=== PATIENT | male | born 1975 | race Caucasian/White ===

== ENCOUNTER 2016-04-13 08:50 | Emergency (ER) | payer BC ==
[2016-04-13 08:59] VITALS: BP 117/79
--- NOTE | 2016-04-13 09:07 | UC ---
Hip/Pelvis Pain - HPI Summary HPI Summary: complaint of right hip pain that started 3 months ago popped his hip 3 months ago and since then intermittent mild discomfort restrictive flexibility ,pain in hamstrings did some stretching then 3 days ago pain has worsened no position is comfortable constant aching pain in rihp shooting down the back of his leg seen by chiropractor 1 week - adjusted him with some relief then pain shifted in to the leg muscles cannot walk with full stride d/t pain took some naproxen for pain without much relief- took an oxyciodone but it made him vomit denies trauma , fever, incontinence, weight loss - History Of Current Complaint Chief Complaint: UCLowerExtremity Stated Complaint: RIGHT HIP PAIN Time Seen by Provider: 04/13/16 08:51 Hx Obtained From: Patient Aggravating Factor(s): Movement, Weight Bearing Alleviating Factor(s): Nothing - Allergies/Home Medications Allergies/Adverse Reactions: Allergies Allergy/AdvReac Type Severity Reaction Status Date / Time No Known Allergies Allergy Verified 04/13/16 08:53 Home Medications: Home Medications Naproxen TAB* [Naprosyn TAB*] 500 mg PO Q12H PRN 04/13/16 [History Confirmed ] oxyCODONE TAB* [Roxycodone TAB 5 mg*] 5 mg PO ONCE 04/13/16 [History Confirmed 04/13/16] PMH/Surg Hx/FS Hx/Imm Hx Previously Healthy: Yes - Surgical History Surgical History: None - Family History Known Family History: Negative: Cardiac Disease, Hypertension, Diabetes - Social History Occupation: Employed Full-time Lives: With Family Alcohol Use: None Substance Use Type: None Smoking Status (MU): Never Smoked Tobacco Household Exposure Type: Cigarettes - Immunization History Most Recent Influenza Vaccination: 2010 Most Recent Tetanus Shot: unk Most Recent Pneumonia Vaccination: never Review of Systems Constitutional: Negative Skin: Negative Eyes: Negative ENT: Negative Respiratory: Negative Cardiovascular: Negative Gastrointestinal: Negative Genitourinary: Negative Motor: Negative Neurovascular: Negative Musculoskeletal: Myalgia, Other: - right hip pain, right leg pain Neurological: Negative Psychological: Negative All Other Systems Reviewed And Are Negative: Yes Physical Exam Triage Information Reviewed: Yes Appearance: Well-Nourished, Pain Distress, Thin Vital Signs: Initial Vital Signs Temp 97.3 F 04/13/16 08:54 Pulse 70 04/13/16 08:54 Resp 16 04/13/16 08:54 BP 117/79 04/13/16 08:54 Pulse Ox 99 04/13/16 08:54 Vital Signs Reviewed: Yes Eyes: Positive: Conjunctiva Clear ENT: Positive: Pharynx normal, TMs normal Neck: Positive: Supple Respiratory: Positive: Lungs clear, Normal breath sounds, No respiratory distress Cardiovascular: Positive: RRR, No Murmur, Pulses Normal Abdomen Description: Positive: Nontender, No Organomegaly, Soft Bowel Sounds: Positive: Present Musculoskeletal: Positive: Other: - RLE- tenderness right hip arond greater trochanter- tenderness throughout musculature in back of right leg, no edema or ecchymosis, limited ROM -pain with varus and valgus movement, cannot take a full stride Neurological: Positive: Alert Psychological Exam: Normal Skin Exam: Normal Hip Injury Course/Dx - Differential Dx/Diagnosis Differential Diagnosis/HQI/PQRI: Dislocation, Fracture, Sprain, Strain Provider Diagnoses: right hip and leg pain d/t-right CAM deformity of femoral head -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 Do not drink alcohol or drive while taking flexeril. Take ibuprofen for fever or pain. call physical therapy and Dr Greenwood for further evaluation and treatment. Increase fluids and rest. Please review your discharge instructions. If your symptoms do not improve please call your primary care provider or return to urgent care.
[2016-04-13] MEDS ORDERED: Ketorolac INJ* 60 MG/2 ML VIAL IV PUSH ONE (09:14)
--- NOTE | 2016-04-13 09:57 | RAD ---
HISTORY: Pain, limited range of motion, right hip COMPARISONS: None VIEWS: 3, Frontal view of the pelvis with frontal and frog-leg views of the right hip FINDINGS: BONE DENSITY: Normal. BONES: There is no displaced fracture. There is a cam deformity of the right femoral neck. There is a similar deformity on the left. JOINTS: There is no arthropathy. ALIGNMENT: There is no dislocation. SOFT TISSUES: Unremarkable. OTHER FINDINGS: None. IMPRESSION: 1. NO ACUTE OSSEOUS INJURY. 2. 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 A SIMILAR DEFORMITY IS NOTED ON THE LEFT. 3. IF SYMPTOMS PERSIST, RECOMMEND REPEAT IMAGING.
== END 2016-04-13 10:16 | disposition home or self-care (01) ==
LOC: UCCORT 08:50
DX: M25.551 Pain in right hip (principal); M21.951 Unspecified acquired deformity of right thigh; Z77.22 Contact with and (suspected) exposure to environmental tobacco smoke (acute) (chronic)
CPT/HCPCS: 96372; 99212; G0463; J1885

== ENCOUNTER 2016-05-27 09:55 | Emergency (ER) | payer BC ==
[2016-05-27 10:15] VITALS: BP 117/72
--- NOTE | 2016-05-27 10:23 | UC ---
Back Pain HPI - HPI Summary HPI Summary: The patient comes in today for: 1. Lower right back pain: Onset: One month ago Palliative/provocative: Laying down and taking medications help. Walking makes it worse. He can walk now about 100 years and does OK. But, more than that, he would have problems. Quality:Dull and ache most of the time, but the sciatica pain will hit him for 1 -2 seconds. Region: Right lower back and down his right leg. Severity: 0/10 Time: Comes and goes. Associated symptoms: Event: None. He just woke up and there was back pain. He had previously had right hip pain for about 3 months. He saw a chiropractor who thought his hips were out of line due to him carrying his child on his left hip. He was at one point "not able to walk." He states that he would crawl to the bathroom. He is walking now. He states that he would have a gisele horse, but it would last for "hours." Primary care provider: He has gone to [facility]. Home Rx: Flexeril Naproxen given here about one month ago. Flexeril did make slight help. * - History of Current Complaint Stated Complaint: HIP PAIN F/U RTW NOTE Time Seen by Provider: 05/27/16 10:12 Hx Obtained From: Patient - Allergies/Home Medications Allergies/Adverse Reactions: Allergies Allergy/AdvReac Type Severity Reaction Status Date / Time No Known Allergies Allergy Verified 05/27/16 10:07 Home Medications: Home Medications Ibuprofen TAB* [Advil TAB*] 800 mg PO Q6H PRN 05/27/16 [History Confirmed ] PMH/Surg Hx/FS Hx/Imm Hx Previously Healthy: No Endocrine History Of: Denies: Diabetes, Thyroid Disease, Hyperthyroidism, Hypothyroidism, Dyslipidemia Cardiovascular History Of: Denies: Cardiac Disorders, Hypertension, Pacemaker/ICD, Myocardial Infarction , Congestive Heart Failure, Atrial Fibrillation, Deep Vein Thrombosis, Bleeding Disorders Respiratory History Of: Denies: COPD, Asthma, Bronchitis, Pneumonia, Pulmonary Embolism GI/ History Of: Denies: Gastroesophageal Reflux, Ulcer, Gastrointestinal Bleed, Gall Bladder Disease, Kidney Stones, Diverticulitis, Renal Disease, Urosepsis Neurological History Of: Denies: TIA, CVA, Dementia, Seizures, Migraine Psychological History Of: Denies: Anxiety, Depression, Bipolar Disorder, Schizophrenia, Post Traumatic Stress Disorder Cancer History Of: Denies: Lung Cancer, Colorectal Cancer, Breast Cancer, Prostate Cancer, Cervical Cancer Other History Of: Negative For: HIV, Hepatitis B, Hepatitis C, Anticoagulant Therapy - Surgical History Surgical History: None - Family History Known Family History: Negative: Cardiac Disease, Hypertension, Diabetes - Social History Alcohol Use: None Substance Use Type: None Smoking Status (MU): Never Smoked Tobacco Household Exposure Type: Cigarettes - Immunization History Most Recent Influenza Vaccination: 2010 Most Recent Tetanus Shot: unk Most Recent Pneumonia Vaccination: never Review of Systems Constitutional: Negative Skin: Negative Eyes: Negative ENT: Negative Respiratory: Negative Gastrointestinal: Negative Genitourinary: Negative Musculoskeletal: Arthralgia, Myalgia All Other Systems Reviewed And Are Negative: Yes Physical Exam Triage Information Reviewed: Yes Appearance: Well-Appearing, No Pain Distress, Well-Nourished, Other: - He is able to walk with no psychomotor slowing or guarding. Vital Signs Reviewed: Yes Eyes: Positive: Conjunctiva Clear. Negative: Discharge ENT: Positive: Hearing grossly normal. Negative: Pharyngeal erythema, Nasal congestion, Nasal drainage, TM bulging, TM dull, TM red, Tonsillar swelling, Tonsillar exudate Dental: Negative: Gross Decay/Caries @, Dental Fracture @ Neck: Positive: Supple, Nontender, No Lymphadenopathy. Negative: Nuchal Rigidity Respiratory: Positive: Lungs clear, No respiratory distress, No accessory muscle use. Negative: Crackles, Wheezing Cardiovascular: Positive: RRR, No Murmur Abdomen Description: Positive: Nontender, No Organomegaly, Soft. Negative: Guarding, Peritoneal Signs, Pulsatile Mass Musculoskeletal: Positive: Strength Intact, ROM Intact, No Edema, Other: - Back : He has no marked tenderness to palpation of the right and left paraspinous musculature. He has good range of motion of the lumbar spine with forward flexion, backward extension and bilateral flexion. DTR: Patellar: 2+/2 x 2. Achilles. Right 1+/2, Left; + 2/2. Neurological: Positive: Alert, Muscle Tone Normal Psychological: Positive: Age Appropriate Behavior, Consolable Skin: Negative: rashes, breakdown Back Pain Course/Dx - Course Course Of Treatment: Patient told of his treatment options. He is Ok with PT referral and Naproxen/Flexeril. He will be given a list of PCP providers in the local area since he does not have a PCP. - Differential Dx/Diagnosis Provider Diagnoses: Lower back pain. Herniated disc. Discharge - Discharge Plan Condition: Stable Disposition: HOME Patient Education Materials: Chronic Back Pain (ED) Referrals: No Primary Care Phys,NOPCP [Primary Care Provider] - 1 Week (Please see your primary care provider in about a week. If you don't have a primary care provider, please reference the included sheet of local provider. If you get worse, please be seen sooner.)
== END 2016-05-27 10:58 | disposition home or self-care (01) ==
LOC: UCCORT 09:55
DX: M54.5 Low back pain (principal); Z77.22 Contact with and (suspected) exposure to environmental tobacco smoke (acute) (chronic)
CPT/HCPCS: 99212; G0463

== ENCOUNTER 2017-03-19 13:20 | Emergency (ER) | payer BC ==
[2017-03-19 14:59] VITALS: BP 111/74
--- NOTE | 2017-03-19 15:34 | UC ---
Throat Pain/Nasal José Miguel HPI - HPI Summary HPI Summary: sore throat x 2 days fever, chills, body aches no cough , no nasal congestion - History of Current Complaint Chief Complaint: UCGeneralIllness Stated Complaint: FEVER 101,VOMITING Time Seen by Provider: 03/19/17 14:44 Hx Obtained From: Patient Onset/Duration: Gradual Onset, Lasting Days - 2, Still Present Severity: Severe Cough: None Associated Signs & Symptoms: Positive: Fever. Negative: Dysphagia, FB Sensation , Drooling, Wheezing, Hoarseness, Sinus Discomfort, Nasal Discharge, Vomiting, Rash - Allergies/Home Medications Allergies/Adverse Reactions: Allergies Allergy/AdvReac Type Severity Reaction Status Date / Time No Known Allergies Allergy Verified 03/19/17 14:59 PMH/Surg Hx/FS Hx/Imm Hx Previously Healthy: Yes Other History Of: Negative For: HIV, Hepatitis B, Hepatitis C, Anticoagulant Therapy - Surgical History Surgical History: None - Family History Known Family History: Negative: Cardiac Disease, Hypertension, Diabetes - Social History Alcohol Use: Rare Substance Use Type: None Smoking Status (MU): Never Smoked Tobacco Have You Smoked in the Last Year: No Household Exposure Type: Cigarettes - Immunization History Most Recent Influenza Vaccination: NOT CURRENT Most Recent Tetanus Shot: unk Most Recent Pneumonia Vaccination: never Review of Systems Constitutional: Fever, Chills, Fatigue Skin: Negative Eyes: Negative ENT: Sore Throat Respiratory: Negative Cardiovascular: Negative Gastrointestinal: Negative Musculoskeletal: Arthralgia, Myalgia Is Patient Immunocompromised?: No All Other Systems Reviewed And Are Negative: Yes Physical Exam Triage Information Reviewed: Yes Appearance: Well-Nourished, Ill-Appearing, Pain Distress Vital Signs: Initial Vital Signs Temp 102.9 F 03/19/17 14:55 Pulse 112 03/19/17 14:55 Resp 18 03/19/17 14:55 BP 111/74 03/19/17 14:55 Pulse Ox 99 03/19/17 14:55 Vital Signs Reviewed: Yes Eye Exam: Normal Eyes: Positive: Conjunctiva Clear ENT: Positive: Normal ENT inspection, Hearing grossly normal, Pharyngeal erythema, TMs normal. Negative: Nasal congestion, Nasal drainage Neck exam: Normal Neck: Positive: Supple, Nontender, No Lymphadenopathy Respiratory: Positive: Chest non-tender, Lungs clear, Normal breath sounds, No respiratory distress Cardiovascular: Positive: No Murmur, Pulses Normal, Tachycardia Abdomen Description: Positive: Nontender, Soft Bowel Sounds: Positive: Present Skin Exam: Normal Throat Pain/Nasal Course/Dx - Differential Dx/Diagnosis Provider Diagnoses: pharyngitis Discharge - Discharge Plan Condition: Stable Disposition: HOME Prescriptions: Amoxicillin PO (*) [Amoxicillin 875 MG (*)] 875 mg PO BID #20 tab Patient Education Materials: Pharyngitis (ED) Referrals: Nina Del Rio MD [Primary Care Provider] - 5 Days Additional Instructions: negative Influenza ? bacterial pharyngitis cont. with rest, increase fluid, Amoxicillin x 10 days Tylenol as needed for pain and fever follow up if not better in 2 days
== END 2017-03-19 15:38 | disposition home or self-care (01) ==
LOC: UCCORT 13:20
DX: J02.9 Acute pharyngitis, unspecified (principal)
CPT/HCPCS: 87502; 99212; G0463